=== PATIENT | female | born 1950 | race Hispanic/Latino ===

== ENCOUNTER 2024-08-29 06:30 | Observation (INO) | payer OTHER ==
[2024-08-25 09:58] LABS: BASOPHILS # (AUTO) 0.02 K/uL (0.00-0.20); BASOPHILS % (AUTO) 0.6 % (0.0-5.0); EOSINOPHILS # (AUTO) 0.12 K/uL (0.00-0.70); EOSINOPHILS % (AUTO) 3.3 % (0.0-8.0); HEMATOCRIT 37.9 % (36-48); LYMPHOCYTES # (AUTO) 1.5 K/uL (1.0-4.8); LYMPHOCYTES % (AUTO) 41.2 % (21.0-51.0); MEAN CORPUSCULAR HEMOGLOBIN 32.8 pg (27.0-33.0); MEAN CORPUSCULAR HGB CONC 34.8 g/dL (32.0-36.0); MEAN CORPUSCULAR VOLUME 94.3 fL (79-99); MONOCYTES # (AUTO) 0.2 K/uL (0.1-1.0); MONOCYTES % (AUTO) 6.7 % (3.0-13.0); NEUTROPHILS # (AUTO) 1.7 K/uL (1.8-7.7); NEUTROPHILS % (AUTO) 48.2 % (40.0-77.0); PLATELET COUNT (AUTO) 165 K/uL (130-400); RED BLOOD CELL COUNT(AUTO) 4.02 MIL/uL (4.00-5.50); RED CELL DISTRIBUTION WIDTH 12.5 % (11.0-15.5); WHITE BLOOD COUNT (AUTO) 3.6 K/uL (4.8-10.8)
[2024-08-25 10:06] VITALS: BP 136/74; PULSE 77; RESP 16; TEMP 97.2
[2024-08-25 10:06] LABS: CREATININE 0.7 mg/dL (0.5-1.0); POTASSIUM 3.9 mmol/L (3.5-5.1)
[2024-08-25 10:08] LABS: INR 1.07 (0.85-1.15); PROTHROMBIN TIME 11.5 SEC (9.6-11.6)
[2024-08-25 10:09] LABS: PARTIAL THROMBOPLASTIN TIME 26.3 SEC (26.3-35.5)
[~2024-08-29] VITALS: Ht 152.4 cm; Wt 73.1 kg
[2024-08-29] VITALS (27 sets, daily range): BP systolic 126–158; BP diastolic 51–89; PULSE 63–86; RESP 14–19; TEMP 96.7–98.3; O2SAT 99–100
[2024-08-29] MEDS: 0.9%NACL 1000ML 1,000 ML IV ONE
[~2024-08-29 06:30] MED LIST: B COMPLEX PO; FAMO40TA7 PO; GLIM2TAB30 PO; METF-446 PO; [UNRECOGNIZED DRUG - OTHER] PO
[2024-08-29] MEDS ORDERED: GLYCOPYRROLATE 0.2 MG/ML 5 ML VIAL ONE (07:08)
[2024-08-29] MEDS ORDERED: ondanSETRON 4MG INJ ONE (07:08)
[2024-08-29] MEDS ORDERED: FENTanyl CITRate PF 50 MCG/1 ML 2ML VIAL ONE (07:09)
[2024-08-29] MEDS ORDERED: MIDAZOLAM HCL 1 MG/ML 2ML VIAL ONE (07:09)
[2024-08-29] MEDS ORDERED: NEOSTIGMINE METHYLSULFATE 1MG/ML IV ONE (07:09)
[2024-08-29] MEDS ORDERED: proPOFol 10 MG/ML 20ML VIAL IV ONE (07:09)
[2024-08-29] MEDS ORDERED: LIDOCAINE PF 100MG/5ML (2%) SYRINGE 5ML ONE (07:10)
[2024-08-29] MEDS ORDERED: rocuRONium bROMide 10MG/1ML 5ML VL ONE (07:11)
[2024-08-29] MEDS ORDERED: phenylEPHRINE HCL 10 MG/ML 1ML VIAL IV ONE (07:13)
[2024-08-29] MEDS ORDERED: BUPIvacaine/PF 0.25% 10ML VIAL IJ ONE (07:43)
[2024-08-29] MEDS: INDOCYANINE GREEN 25 MG VIAL IJ ONE (08:02)
[2024-08-29] MEDS: ceFAZolin SODIUM 2 GM VIAL ONE (08:30)
[2024-08-29] MEDS: BUPIvacaine/PF 0.25% 30ML VIAL IJ ONE (08:43)
--- NOTE | 2024-08-29 10:14 | OP ---
Operative Note: DATE OF PROCEDURE: 08/29/24 SURGEON: NALDO DOMINGUEZ MD VAULT WORKER: [] ANESTHESIA: [] General ANESTHESIOLOGIST/CAP LINING MACHINE OPERATOR: [] PREOPERATIVE DIAGNOSIS: [] Cholecystitis Umbilical hernia incarcerated POSTOPERATIVE DIAGNOSIS: [] The same Nodular liver SYNOPSIS: [] PROCEDURE: [] Robotic cholecystectomy Open umbilical hernia repair ESTIMATED BLOOD LOSS: [] 50 cc INDICATIONS: [] DESCRIPTION OF PROCEDURE: [] With the patient prepped and draped we did a supraumbilical incision over the incarcerated umbilical hernia.. Using direct technique I placed a balloon trocar above the umbilical hernia.. Two da Juan Carlos trochars were placed in each side of the abdomen under direct vision. A 5 mm trocar was placed in the right lateral side. I then went to the console and the robot was docked. I took all adhesions from the gallbladder and I started dissecting the triangle of Calot. we used firefly to identify the cystic duct and CBD.The cystic duct and the cystic artery were clearly identified and both were double clipped and divided. I took the gallbladder from below using cautery dissection. After the gallbladder was completely removed and adequate hemostasis was obtained I remove all the instruments from the abdomen. I undocked the robot and I came back to the bedside of the patient. I confirm hemostasis suction and irrigate and I placed the gallbladder in a bag. I injected 40 cc of Marcaine 0.25% as an abdominal tap block under direct vision. I injected 20 cc in each side of the abdomen. I took out all the trochars under direct vision and the gallbladder through the supraumbilical incision. I then reduced the incarcerated hernia in the umbilicus. This was large and have significant amount of omentum. After taking an opening in the hernia sac I removed some part of the omentum in order to reduce the hernia. After taking the sac and cleaning the fascia I ended with a 6 cm hernia defect. Because of the cholecystectomy I decided not to place a mesh and I closed the fascia using interrupted 0 Prolene sutures. After this was done I reimplanted the umbilicus to the fascia and I closed the subcutaneous tissue with a 2-0 Vicryl. All incisions were closed with 4-0 Monocryl and Steri-Strips. No complications. NALDO DOMINGUEZ MD Aug 29, 2024 10:14
[2024-08-29] MEDS: MEPERIDINE-PF 25 MG/ML SYG ONE ×2 (10:50→11:01)
--- NOTE | 2024-08-29 11:35 | NUR ---
PT ARRIVAL RECEIVED PT TO FLOOR S/P [facility] WITH UMBILICAL HERNIA REPAIR, REPORT GIVEN BY ACE. PT PLACED ON LR @75ML/HR. PT SLEEPING AT THIS TIME. RESPIRATIONS EVEN AND REGULAR. ORDERS NOTED AND CARRIED OUT. WILL CONT TO MONITOR
[2024-08-29] MEDS ORDERED: morPHINE 4 MG SYG IVP PRN (12:00)
[2024-08-29] MEDS ORDERED: ibuPROFEN 800 MG TAB PO PRN (12:00)
[2024-08-29] MEDS: acetaMINOPHEN 1,000 MG/100 ML VIAL IV ONE (12:26)
[2024-08-29] MEDS: ketOROlac 15MG/ML VIAL (15MG/ML) IV PRN (12:37)
[2024-08-29] MEDS: LACTATED RINGERS 1000ML 1,000 ML IV SCH (12:46)
[2024-08-29] MEDS: metFORmin HCL 500 MG TABLET PO SCH (17:00)
[2024-08-30 03:49] VITALS: BP 141/58; PULSE 91; RESP 18; TEMP 98.8
[2024-08-30 03:57] LABS: BASOPHILS # (AUTO) 0.01 K/uL (0.00-0.20); BASOPHILS % (AUTO) 0.2 % (0.0-5.0); EOSINOPHILS # (AUTO) 0.08 K/uL (0.00-0.70); EOSINOPHILS % (AUTO) 1.5 % (0.0-8.0); HEMATOCRIT 33.1 % (36-48); IMMATURE GRANULOCYTE ABSOLUTE 0.01 K/uL (0-1); LYMPHOCYTES # (AUTO) 1.2 K/uL (1.0-4.8); LYMPHOCYTES % (AUTO) 23.6 % (21.0-51.0); MONOCYTES # (AUTO) 0.5 K/uL (0.1-1.0); MONOCYTES % (AUTO) 9.1 % (3.0-13.0); NEUTROPHILS # (AUTO) 3.4 K/uL (1.8-7.7); NEUTROPHILS % (AUTO) 65.4 % (40.0-77.0); PLATELET COUNT (AUTO) 139 K/uL (130-400); RED BLOOD CELL COUNT(AUTO) 3.52 MIL/uL (4.00-5.50); RED CELL DISTRIBUTION WIDTH 12.9 % (11.0-15.5); WHITE BLOOD COUNT (AUTO) 5.3 K/uL (4.8-10.8)
[2024-08-30 04:15] LABS: ALBUMIN 2.7 g/dL (3.5-5.0); BILIRUBIN,TOTAL 1.3 mg/dL (0.2-1.0); CREATININE 0.7 mg/dL (0.5-1.0); POTASSIUM 3.5 mmol/L (3.5-5.1); TOTAL PROTEIN, SERUM 6.1 g/dL (6.0-8.3)
[2024-08-30 07:00] VITALS: BP 132/62; PULSE 106; RESP 18; TEMP 100.1
[2024-08-30] MEDS: FAMOTIDINE 20MG TAB PO SCH (08:22)
[2024-08-30] MEDS: GLIMEPIRIDE 2 MG TABLET PO SCH (08:23)
[2024-08-30 09:30] VITALS: O2SAT 95
[2024-08-30 11:44] VITALS: BP 132/62; PULSE 106; RESP 20; TEMP 100.1
[2024-08-30 14:00] VITALS: BP 137/66; PULSE 78; RESP 20; TEMP 98.7
--- NOTE | 2024-08-30 16:50 | DS ---
Discharge Summary HOSPITAL COURSE SUMMARY: [ This is a 74-year-old female postop day one cholecystectomy with umbilical hernia repair 74-year-old female seen in her room resting comfortably Patient tolerating diet Vitals stable Labs unremarkable Patient ready for discharge Incisions clean No acute events reported overnight \ Assessment and plan From surgical standpoint patient to be cleared for discharge. Patient to continue with the abdominal binder use. Patient to follow up in two weeks with Dr. Goetz's office. Nursing report any further acute events and patient to avoid constipation MATERIALS BUYER(S): [None] PROCEDURES: [Cholecystectomy with umbilical hernia repair] PROBLEM(S): [None] DISCHARGE INSTRUCTIONS: [] Home Meds Reported Medications Glimepiride (Glimepiride) 2 Mg Tablet, 1 TAB PO DAILY for 30 Days, #30 TAB 0 Refills 08/25/24 Metformin HCl (Metformin HCl) 1,000 Mg Tablet, 1 TAB PO BID for 30 Days, #60 TAB 0 Refills 08/25/24 Famotidine (Famotidine) 40 Mg Tablet, 1 TAB PO DAILY for 30 Days, #30 TAB 0 Refills 08/25/24 [B Complex W/C] No Conflict Check, 1 TAB PO DAILY 08/25/24 Time spent arranging discharge: 1-30 minutes JULIEN RAMIREZ Jr. Aug 30, 2024 16:50
--- NOTE | 2024-08-30 18:14 | NUR ---
DISCHARGE TORB BY DR. DOMINGUEZ TO DISCHARGE PATIENT HOME. SCRIPT FOR PAIN MEDICATION AND COLACE LEFT BY NIMESH VICTORIA. GIVEN TO SON AT BEDSIDE. ORDERS PLACED AND CARRIED OUT. PATIENT TO CALL DR. DOMINGUEZ'S OFFICE TOMORROW MORNING FOR FOLLOW UP APPOINTMENT. BOTH PATIENT AND SON VOICED UNDERSTANDING.
--- NOTE | 2024-08-30 18:40 | NUR ---
DISCHARGE DISCHARGE ORDERS OBTAINED FOR PATIENT TO BE DISCHARGED HOME DISCHARGE INSTRUCTIONS AND DOCUMENTATION GIVEN TO PATIENT AND FAMILY AT BEDSIDE. BOTH VOICED UNDERSTANDING. IV DISCONTINUED, CATHETER INTACT, NO S/S OF INFECTION NOTED. PATIENT TOLERATED WELL. BANDS REMOVED. PATIENT PENDING TRANSPORTATION. Addendum: 08/30/24 at 1851 by BERTHA TORRES LVN LVN PATIENT TO CALL DR. DOMINGUEZ'S OFFICE TOMORROW MORNING FOR FOLLOW UP APPOINTMENT. BOTH PATIENT AND FAMILY VOICED UNDERSTANDING.
--- NOTE | 2024-08-30 19:06 | NUR ---
DISCHARGE 185 PATIENT LEFT VIA WHEELCHAIR ACCOMPANIED BY FAMILY. NO S/S OF DISTRESS NOTED.
== END 2024-08-30 18:58 | disposition home or self-care (01) ==
LOC: DAH 06:30 → DAHIP 06:31 → DAH 06:31 → 4AH 11:35
PROVIDERS: ADMIT Surgery; ATTEND Surgery
DX: K80.10 Calculus of gallbladder with chronic cholecystitis without obstruction (principal); K42.0 Umbilical hernia with obstruction, without gangrene; K82.8 Other specified diseases of gallbladder; E78.5 Hyperlipidemia, unspecified; E11.9 Type 2 diabetes mellitus without complications; Z79.899 Other long term (current) drug therapy; Z86.73 Personal history of transient ischemic attack (TIA), and cerebral infarction without residual deficits
CPT/HCPCS: 80048; 85025 ×2; 85610; 85730; 36415 ×2; 49594; 82948 ×7; 88304; 47562; 96374; 96376 ×2; 80053; A6260; A4663; A4452; J3010; J7030; J0665 ×2; J3490 ×2; J2003; J2250; J2704; J2405; J2710; J2175 ×2; J1885 ×4; J2371; J0690; C1769; A4649; A4930; A4215; A4223; A4213; A4222; A4221; A4600; G0378

== ENCOUNTER → 2025-01-27 | Outpatient (CLI) | payer OTHER ==
--- NOTE | 2025-01-27 16:54 | HMCIMG ---
CT HEART SAVER PROMOTIONAL HISTORY: Cardiac calcification scoring. FINDINGS: The cardiac calcification scoring is 0. Limited examination of the heart was performed. The study is done for additional or incidental findings. IMPRESSION: Surrounding liver, splenomegaly, and mild gastroesophageal varices. No other additional findings.
== END | disposition home or self-care (01) ==
LOC: RAH 15:36
PROVIDERS: ATTEND Internal Medicine Cardiovascular Disease
DX: Z13.6 Encounter for screening for cardiovascular disorders (principal); I86.4 Gastric varices; R16.2 Hepatomegaly with splenomegaly, not elsewhere classified
CPT/HCPCS: 75571